=== PATIENT | male | born 1945 | race Caucasian/White ===

== ENCOUNTER 2017-01-04 11:43 | Outpatient (CLI) | payer MEDICARE ==
[2016-07-31 23:09] VITALS: BP 155/86
[2017-01-04 12:59] LABS: eGFR (African) 36; eGFR (Non-African) 30
== END 2017-01-04 11:44 ==
LOC: LAB 11:43
PROVIDERS: ATTEND Family Medicine
DX: I10 Essential (primary) hypertension (principal); E78.5 Hyperlipidemia, unspecified
CPT/HCPCS: 36415; 80053; 80061

== ENCOUNTER 2017-02-12 15:24 | Outpatient (CLI) | payer MEDICARE ==
[2016-07-31 23:09] VITALS: BP 155/86
== END 2017-02-12 15:25 ==
LOC: NEPHRO 15:24
PROVIDERS: ATTEND Internal Medicine Nephrology
DX: N18.3 Chronic kidney disease, stage 3 (moderate) (principal); I50.9 Heart failure, unspecified; J44.9 Chronic obstructive pulmonary disease, unspecified; I25.10 Atherosclerotic heart disease of native coronary artery without angina pectoris
CPT/HCPCS: G0463

== ENCOUNTER 2017-05-14 15:53 | Outpatient (CLI) | payer MEDICARE ==
[2016-07-31 23:09] VITALS: BP 155/86
== END 2017-05-14 15:58 | disposition home or self-care (01) ==
LOC: NEPHRO 15:53
PROVIDERS: ATTEND Internal Medicine Nephrology
DX: N18.9 Chronic kidney disease, unspecified (principal)
CPT/HCPCS: G0463

== ENCOUNTER 2017-05-29 14:03 | Outpatient (CLI) | payer MEDICARE ==
[2016-07-31 23:09] VITALS: BP 155/86
[2017-05-30 04:51] LABS: TOTAL PROTEIN 6.5 g/dL (6.0-8.5)
== END 2017-05-29 14:04 ==
LOC: LAB 14:03
PROVIDERS: ATTEND Internal Medicine Nephrology
DX: N18.9 Chronic kidney disease, unspecified (principal)
CPT/HCPCS: 36415; 80053

== ENCOUNTER 2017-06-13 14:12 | Outpatient (CLI) | payer MEDICARE ==
[2016-07-31 23:09] VITALS: BP 155/86
[2017-06-13 14:30] LABS: BASOPHILS % 0.9 (0.0-1.5); EOSINOPHILS % 3.1 % (0.0-6.8); MEAN CORPUSCULAR HEMOGLOBIN 33.6 pg (28.0-34.0); MEAN CORPUSCULAR VOLUME 100.8 fl (80.0-100.0); MONOCYTES % 5.3 % (0.0-11.0); NEUTROPHILS # 4.8 # k/uL (1.4-7.7)
[2017-06-13 14:47] LABS: APPEARANCE,URINE Cloudy (CLEAR); COLOR,URINE Yellow (YELLOW); OCCULT BLOOD,URINE 2+ (NEGATIVE); UROBILINOGEN URINE 0.2 Eu (0.2-1.0)
[2017-06-13 14:50] LABS: eGFR (African) 40; eGFR (Non-African) 33
[2017-06-13 14:55] LABS: AMORPHOUS SEDIMENT,UR FEW (NEGATIVE)
== END 2017-06-13 14:13 ==
LOC: LAB 14:12
PROVIDERS: ATTEND Internal Medicine Nephrology
DX: Z00.01 Encounter for general adult medical examination with abnormal findings (principal)
CPT/HCPCS: 36415; 80053; 81002; 85025

== ENCOUNTER 2017-07-26 16:43 | Outpatient (CLI) | payer MEDICARE ==
[2016-07-31 23:09] VITALS: BP 155/86
== END 2017-07-26 16:44 ==
LOC: LABRHC 16:43
PROVIDERS: ATTEND Physician Assistant
DX: N39.0 Urinary tract infection, site not specified (principal); R31.9 Hematuria, unspecified
CPT/HCPCS: 87086

== ENCOUNTER 2017-08-08 10:21 | Outpatient (CLI) | payer MEDICARE ==
[2016-07-31 23:09] VITALS: BP 155/86
== END 2017-08-08 10:22 ==
LOC: LABRHC 10:21
PROVIDERS: ATTEND Family Medicine
DX: N30.00 Acute cystitis without hematuria (principal)
CPT/HCPCS: 87086

== ENCOUNTER 2017-08-13 10:29 | Outpatient (CLI) | payer MEDICARE ==
[2016-07-31 23:09] VITALS: BP 155/86
[2017-08-13 11:25] LABS: eGFR (African) 43; eGFR (Non-African) 35
== END 2017-08-13 10:30 ==
LOC: LAB 10:29
PROVIDERS: ATTEND Family Medicine
DX: E87.5 Hyperkalemia (principal)
CPT/HCPCS: 36415; 80048

== ENCOUNTER 2017-11-11 15:59 | Outpatient (CLI) | payer MEDICARE ==
[2016-07-31 23:09] VITALS: BP 155/86
[2017-11-11 16:13] LABS: BASOPHILS % 0.6 (0.0-1.5); EOSINOPHILS % 3.6 % (0.0-6.8); MEAN CORPUSCULAR HEMOGLOBIN 32.8 pg (28.0-34.0); MONOCYTES % 5.9 % (0.0-11.0); NEUTROPHILS # 5.3 # k/uL (1.4-7.7)
[2017-11-11 16:15] LABS: APPEARANCE,URINE Clear (CLEAR); COLOR,URINE Yellow (YELLOW); OCCULT BLOOD,URINE 2+ (NEGATIVE); PH URINE 6.5 (5.0 - 8.0); UROBILINOGEN URINE 0.2 Eu (0.2-1.0)
[2017-11-11 16:37] LABS: eGFR (African) 40; eGFR (Non-African) 33
== END 2017-11-11 16:00 ==
LOC: LAB 15:59
PROVIDERS: ATTEND Internal Medicine Nephrology
DX: R82.4 Acetonuria (principal)
CPT/HCPCS: 36415; 80053; 81002; 85025

== ENCOUNTER 2017-11-12 14:27 | Outpatient (CLI) | payer MEDICARE ==
[2016-07-31 23:09] VITALS: BP 155/86
== END 2017-11-12 14:30 ==
LOC: NEPHRO 14:27
PROVIDERS: ATTEND Internal Medicine Nephrology
DX: N18.9 Chronic kidney disease, unspecified (principal); N20.2 Calculus of kidney with calculus of ureter
CPT/HCPCS: G0463

== ENCOUNTER 2019-01-23 16:00 | Outpatient (CLI) | payer MEDICARE ==
[2017-11-19 14:33] VITALS: BP 99/59
== END 2019-01-23 16:10 ==
LOC: LABRHC 16:00
PROVIDERS: ATTEND Family Medicine
DX: N39.0 Urinary tract infection, site not specified (principal)
CPT/HCPCS: 87086